=== PATIENT | male | born 1950 | race Caucasian/White ===

== ENCOUNTER → 2017-11-04 | Day surgery (SDC) | payer OTHER ==
[~2017-11-04] MED LIST: BUDE10.2 IH; CITA20TA9 PO; IV RINGERS SOLUTION,LACTATED 1,000 ML IV SCH; LIDOCAINE 1% PF 2 ML VIAL. ID PRN; MULT1TAB52 PO; ONDANSETRON PF 4 MG/2 ML VIAL. IV PRN; PROCHLORPERAZINE 10 MG/2 ML VIAL. IV PRN; PROPOFOL 40 ML IV ONE
[2017-11-04 12:46] VITALS: BP 166/82
--- NOTE | 2017-11-08 13:08 | PATHOLOGY ---
PATHOLOGY REPORT * * * * * * * * FINAL DIAGNOSIS: A. Colon biopsy, cecal polyp: - Diminutive tubular adenoma. B. Colon biopsies, descending colon polyp: - Tubular adenoma. COMMENT: There is no high grade dysplasia or evidence of malignancy. (JPM:mml; 11/08/2017) REPORT ELECTRONICALLY SIGNED BY: Nima Hoffman M.D. DATE/TIME: 11/08/2017 13:07 * * * * * * * * GROSS PATHOLOGY: A. Received in formalin labeled "Rogelio Beasley, cecum polyp," is a segment of wagner soft tissue measuring 0.2 cm in maximum dimension. The specimen is submitted entirely in cassette A1. B. Received in formalin labeled "Rogelio Beasley, descending colon polyp," are multiple (more than 10) segments of wagner soft tissue measuring 2.4 x 0.9 x 0.2 cm in aggregate dimensions and ranging from 0.1 to 0.5 cm in maximum dimension. The specimen is submitted entirely in cassette B1. (TSD; 11/07/2017) INITIAL CPT CODE(S): A; 08519 B; 44141 Professional services performed [place] [facility] [place] [address] Technical services performed by [facility] at [address] [place] [address], [facility] [address] [address]. SPECIMEN(S) RECEIVED: A.Cecum polyp B.Descending colon polyp CLINICAL HISTORY: Screening PATIENT: ROGELIO BEASLEY /AGE: 109/25/1950 (Age: 67) PATIENT #: [id number] ALT CASE #: SPECIMEN COLLECTION DATE: 11/04/2017 SPECIMEN RECEIVED DATE: 11/07/2017 [facility] - [address] [place] [address] - PHONE: [phone] * * * END OF REPORT * * *
== END | disposition home or self-care (01) ==
LOC: SURG 10:29
PROVIDERS: ATTEND Internal Medicine Gastroenterology
DX: Z12.11 Encounter for screening for malignant neoplasm of colon (principal); D12.0 Benign neoplasm of cecum; D12.4 Benign neoplasm of descending colon; M19.90 Unspecified osteoarthritis, unspecified site; G47.39 Other sleep apnea; Z98.890 Other specified postprocedural states
CPT/HCPCS: 45380; 45385; 88305; J2704; J7120